=== PATIENT | male | born 1965 | race Caucasian/White ===

== ENCOUNTER 2016-08-29 09:39 | Emergency (ER) | payer OTHER ==
[~2016-08-29] VITALS: Ht 177.8 cm; Wt 87.5 kg
[2016-08-29 09:49] VITALS: Ht 177.8 cm; Wt 87.5 kg
[2016-08-29] MEDS ORDERED: HYDROmorphONE 2 MG/ML SYG IV ONE (10:00)
[2016-08-29] MEDS ORDERED: ONDANSETRON 4 MG INJ IV ONE (10:00)
--- NOTE | 2016-08-29 11:21 | RADRPT ---
PROCEDURE: CT Brain without contrast. CLINICAL INDICATION: Trauma with loss of consciousness. TECHNIQUE: Axial imaging was obtained through the head without intravenous contrast administration using a multi-slice CT scanner. Standard CT scan of the head without contrast protocols were perfo rmed. The CTDIvol is 44.81 mGy and the DLP is 630.2 mGycm. COMPARISON: None FINDINGS: There is an misregistration artifact involving the posterior calvarium. There are no definite sol rial fractures. The ventricular system and peripheral CSF spaces are unremarkable. Negative for in tracranial masses hemorrhages or midline shift. There is a sessile shaped bulge along the right lat eral scalp without an underlying mass or fluid collection. No foreign bodies. The paranasal sinuse s and mastoids visualized are unremarkable. IMPRESSION: No evidence of intracranial masses hemorrhages or midline shift. RPTAT:AAJJ Physician Nicolas Date Time Electronically viewed and signed by Physician Nicolas on 08/29/2016 11:21 /
--- NOTE | 2016-08-29 11:46 | RADRPT ---
PROCEDURE: XR Chest. CLINICAL INDICATION: Trauma TECHNIQUE: Single frontal chest x-ray. COMPARISON: None. FINDINGS: There is diffuse subcutaneous emphysema noted throughout the lower neck and chest, most pronounced o emma the left chest with air dissecting into the pectoralis major fibers. The underlying lungs are p artially obscured. There is opacification left lung base related to contusion or atelectasis. Ther e is lucency noted in the right upper lung, a pneumothorax is not excluded. Evaluation there is als o limited. No gross displaced fractures are identified. A posterior left-sided Kaufman felicia is n oted at the thoracolumbar spine with evidence of scoliosis. IMPRESSION: 1. Extensive subcutaneous emphysema noted throughout the visualized lungs, correlation with chest C T is warranted. 2. Partial obscuration of the underlying lungs, with partial opacification of the left lung base, p artially characterized. RPTAT: TT .Chau Johnston MD, MD Date Time Electronically viewed and signed by .Chau Johnston MD, on 08/29/2016 11:45 .d/
--- NOTE | 2016-08-29 11:49 | RADRPT ---
PROCEDURE: Thoracic Spine. CLINICAL INDICATION: Back Pain. Trauma. TECHNIQUE: Three views of the thoracic spine are available for review COMPARISON: None available FINDINGS: Significant reverse S-shaped curvature of the thoracic spine. Posterior spinal fixation felicia is seen in place. There is reversal of the normal thoracic kyphosis on the lateral view. There is moderate loss of height of several mid thoracic spine vertebral bodies, age indeterminate. Osteoporotic com pression fractures are considered most likely. Above this level, there is significant discogenic di sease and disk space narrowing at several upper thoracic spinal disk space levels, at the approximat e T3-4 and T4-5 levels. No other incidental abnormality is seen. IMPRESSION: 1. There is moderate loss of height of several mid thoracic spine vertebral bodies, age indetermina te and possibly chronic and osteoporotic in nature. Given the patient's history of trauma, acute co mpression fractures are not entirely excluded, although considered less likely. 2. Multilevel discogenic disease and disk space narrowing with degenerative spondylosis involving t he upper thoracic spine at the approximate T3-T5 levels. 3. Moderate and significant reverse S-shaped scoliotic curvature of the thoracic spine. There is a posterior spinal fixation felicia in place. RPTAT: HMJB .Juan Merchant MD, MD Date Time Electronically viewed and signed by .Juan Merchant MD, on 08/29/2016 11:48 .B/
[2016-08-29] MEDS ORDERED: ONDANSETRON 4 MG INJ IV STA ×2 (12:18→15:20)
[2016-08-29] MEDS ORDERED: HYDROmorphONE 1 MG/ML SYG IV STA ×3 (12:18→16:18)
[2016-08-29 12:37] LABS: POTASSIUM 3.9 mmol/L (3.5-5.1)
[2016-08-29 12:40] LABS: CREATININE 0.67 mg/dl (0.61-1.24)
[2016-08-29 12:41] LABS: CALCIUM 9.3 mg/dl (8.4-10.2)
[2016-08-29] MEDS ORDERED: IOHEXOL 100 ML ONE (13:07)
[2016-08-29] MEDS ORDERED: SOD CHLORIDE 0.9% 100 ML ONE (13:07)
[2016-08-29] MEDS ORDERED: IOHEXOL 350MG/ML 50 ML BTL ONE (13:08)
--- NOTE | 2016-08-29 13:35 | ERA ---
ER Documentation Chief Complaint Date/Time DATE: 08/29/16 TIME: 13:32 Chief Complaint 5 ft fall; ko; back pain; sob HPI This a 50-year-old male who fell 5 feet from a small ladder landing on an electric saw that was not returned on to his mid thoracic spine. Bystanders said he did hit his head and was knocked out for 30 seconds. The patient is denying neck pain headache but complains of pain to the intrascapular region. Says he has a felicia in his back from the scoliosis surgery. Is concerned that has gotten displaced because of the pain. He is no chest pain no abdominal pain no low back pain no pelvic pain no extremity pain no dizziness shortness of breath. ROS All systems reviewed and are negative except as per history of present illness. Medications Home Meds No Active Prescriptions or Reported Meds Allergies Allergies: Coded Allergies: No Known Allergy (Unverified , 08/29/16) PMhx/Soc Medical and Surgical Hx: pt denies Medical Hx, pt denies Surgical Hx Hx Alcohol Use: Yes Hx Substance Use: No Hx Tobacco Use: No Smoking Status: Never smoker FmHx Family History: No coronary disease Physical Exam Vitals Vital Signs Date Time Temp Pulse Resp B/P Pulse Ox O2 Delivery O2 Flow Rate FiO2 08/29/16 09:49 98.4 82 24 146/110 100 Physical Exam Const: Well-developed, well-nourished Head: Atraumatic, normocephalic Eyes: Normal Conjunctiva, PERRLA, EOMI, normal sclera, no nystagmus ENT: Normal External Ears, Nose and Mouth, moist mucus membranes. Neck: Full range of motion. No meningismus, no lymphadenopathy. Resp: Clear to auscultation bilaterally, no wheezing, rhonchi, rales Cardio: Regular rate and rhythm, no murmurs, S1 S2 present Abd: Soft, non tender x 4, non distended. Normal bowel sounds, no guarding or rebound, no pulsitile abdominal masses or bruits Skin: No petechiae or rashes, no ecchymosis , no maculopapular rash Back: Tenderness along the mid and upper thoracic spine the midline and bilateral paraspinal regions, pain is worse with movements Ext: No cyanosis, or edema, FROM x 4, normal inspection, neurovascularly intact x 4 Neur: Awake and alert, STR 5/5 x 4, sensation intact x 4, no focal findings, cerebellum intact Psych: Normal Mood and Affect Result Diagram: 08/29/16 1225 Results 24 hrs Laboratory Tests Test 08/29/16 12:25 Anion Gap 16 Blood Urea Nitrogen 19mg/dl Calcium Level 9.3mg/dl Carbon Dioxide Level 30mmol/L Chloride Level 99mmol/L Creatinine 0.67mg/dl Glucose Level 109mg/dl Potassium Level 3.9mmol/L Sodium Level 141mmol/L Current Medications Medications (Trade) Dose Ordered Sig/Checo Route PRN Reason Start Time Stop Time Status Last Admin Dose Admin Hydromorphone HCl (Dilaudid) 1 mg ONCE ONCE IV 08/29/16 10:00 08/29/16 10:02 DC 08/29/16 10:14 Ondansetron HCl (Zofran Inj) 4 mg ONCE ONCE IV 08/29/16 10:00 08/29/16 10:02 DC 08/29/16 10:14 Hydromorphone HCl (Dilaudid) 1 mg ONCE STAT IV 08/29/16 12:18 08/29/16 12:19 DC 08/29/16 12:32 Ondansetron HCl (Zofran Inj) 4 mg ONCE STAT IV 08/29/16 12:18 08/29/16 12:19 DC 08/29/16 12:32 IV Flush 10 ml 10 ml STK-MED ONCE .ROUTE 08/29/16 13:07 08/29/16 13:08 DC 08/29/16 13:32 Sodium Chloride 100 ml @ ud STK-MED ONCE .ROUTE 08/29/16 13:07 08/29/16 13:08 DC 08/29/16 13:33 Iohexol (Omnipaque) 100 ml @ ud STK-MED ONCE .ROUTE 08/29/16 13:07 08/29/16 13:08 DC 08/29/16 13:33 Iohexol 50 ml 50 ml STK-MED ONCE .ROUTE 08/29/16 13:08 08/29/16 13:09 DC 08/29/16 13:33 Propofol (Diprivan) 20 ml @ ud STK-MED ONCE .ROUTE 08/29/16 14:35 08/29/16 14:36 DC Lidocaine 20 ml 20 ml STK-MED ONCE .ROUTE 08/29/16 15:03 08/29/16 15:04 DC Propofol (Diprivan) 20 ml @ ud STK-MED ONCE .ROUTE 08/29/16 15:09 08/29/16 15:10 DC Procedures/MDM PROCEDURE: CT Brain without contrast. CLINICAL INDICATION: Trauma with loss of consciousness. TECHNIQUE: Axial imaging was obtained through the head without intravenous contrast administration using a multi-slice CT scanner. Standard CT scan of the head without contrast protocols were performed. The CTDIvol is 44.81 mGy and the DLP is 630.2 mGycm. COMPARISON: None FINDINGS: There is an misregistration artifact involving the posterior calvarium. There are no definite calvarial fractures. The ventricular system and peripheral CSF spaces are unremarkable. Negative for intracranial masses hemorrhages or midline shift. There is a sessile shaped bulge along the right lateral scalp without an underlying mass or fluid collection. No foreign bodies. The paranasal sinuses and mastoids visualized are unremarkable. IMPRESSION: No evidence of intracranial masses hemorrhages or midline shift. RPTAT:AAJJ Physician Nicolas Date Time Electronically viewed and signed by Physician Nicolas on 08/29/2016 11:21 BM/ CC: TYREL SHERMAN DO PROCEDURE: XR Chest. CLINICAL INDICATION: Trauma TECHNIQUE: Single frontal chest x-ray. COMPARISON: None. FINDINGS: There is diffuse subcutaneous emphysema noted throughout the lower neck and chest, most pronounced over the left chest with air dissecting into the pectoralis major fibers. The underlying lungs are partially obscured. There is opacification left lung base related to contusion or atelectasis. There is lucency noted in the right upper lung, a pneumothorax is not excluded. Evaluation there is also limited. No gross displaced fractures are identified. A posterior left-sided Kaufman felicia is noted at the thoracolumbar spine with evidence of scoliosis. IMPRESSION: 1. Extensive subcutaneous emphysema noted throughout the visualized lungs, correlation with chest CT is warranted. 2. Partial obscuration of the underlying lungs, with partial opacification of the left lung base, partially characterized. RPTAT: TT .Chau Johnston MD, MD Date Time Electronically viewed and signed by .Chau Johnston MD, MD on 08/29/2016 11:45 .d/ CC: TYREL SHERMAN DO PROCEDURE: Thoracic Spine. CLINICAL INDICATION: Back Pain. Trauma. TECHNIQUE: Three views of the thoracic spine are available for review COMPARISON: None available FINDINGS: Significant reverse S-shaped curvature of the thoracic spine. Posterior spinal fixation felicia is seen in place. There is reversal of the normal thoracic kyphosis on the lateral view. There is moderate loss of height of several mid thoracic spine vertebral bodies, age indeterminate. Osteoporotic compression fractures are considered most likely. Above this level, there is significant discogenic disease and disk space narrowing at several upper thoracic spinal disk space levels, at the approximate T3-4 and T4-5 levels. No other incidental abnormality is seen. IMPRESSION: 1. There is moderate loss of height of several mid thoracic spine vertebral bodies, age indeterminate and possibly chronic and osteoporotic in nature. Given the patient's history of trauma, acute compression fractures are not entirely excluded, although considered less likely. 2. Multilevel discogenic disease and disk space narrowing with degenerative spondylosis involving the upper thoracic spine at the approximate T3-T5 levels. 3. Moderate and significant reverse S-shaped scoliotic curvature of the thoracic spine. There is a posterior spinal fixation felicia in place. RPTAT: HMJB .Juan Merchant MD, MD Date Time Electronically viewed and signed by .Juan Merchant MD, MD on 08/29/2016 11:48 .B/ CC: TYREL SHERMAN DO The patient is subsequently developed subcutaneous emphysema along the upper chest and lower neck left more than right. CT scan of chest with IV contrast has been ordered PROCEDURE: CTA Chest CLINICAL INDICATION: Trauma, pain TECHNIQUE: CTA of the chest was performed following the uncomplicated IV administration of 125 cc Omnipaque 350. Coronal and sagittal images were reconstructed from the axial data set. 3-D volumetric rendered post processing was performed as well. One or more of the following dose reduction techniques were used: automated exposure control, adjustment of the mA and/or kV according to patient size, use of iterative reconstruction technique. CTDI = 16.95 mGy. DLP = 717.15 mGy-cm. COMPARISON: X-ray, 08/29/2016 FINDINGS: There are moderate to large bilateral pneumothoraces (approximately 20-30% bilaterally). Bibasilar atelectasis is noted. Small to mild amount of hyperdense pleural fluid is seen bilaterally, compatible with hemothorax. No active contrast extravasation is identified. The central tracheobronchial tree is clear. No suspicious pulmonary nodule or mass lesion is identified. The heart size is normal, without pericardial effusion. There is no thoracic aortic aneurysm or dissection. No mediastinal, hilar, axillary or supraclavicular lymphadenopathy is identified. Extensive pneumomediastinum is noted. Visualized portions of the upper abdomen demonstrate no acute abnormality. There are mild to moderate displaced acute fractures of the right 1st - 5th ribs anteriorly and anterolaterally. In addition, there are mildly displaced acute fractures of the right 3rd, 4th, 5th and 12th ribs posteriorly. There are moderately displaced acute fractures of the left 1st and 2nd ribs anteriorly. Extensive bilateral subcutaneous emphysema is seen extending into the lower neck and mediastinum. Thoracic spinal felicia is in place. No evidence of acute spiral fracture or malalignment is seen. IMPRESSION: 1. There are moderate to large bilateral pneumothoraces (approximately 20-30% bilaterally). 2. Extensive bilateral chest wall subcutaneous emphysema is seen, extending into the lower neck and into the mediastinum. 3. Small to mild amount of hemothorax is present bilaterally, greater on the right. 4. There are multiple bilateral rib fractures, as outlined above. A call report was made to Dr. WHIT Parish on 08/29/2016 1:39:46 PM. RPTAT: EE .Ozzie Gilbert MD, Date Time Electronically viewed and signed by .Ozzie Gilbert MD, MD on 08/29/2016 13: 47 .R/ CC: TYREL SHERMAN DO Patient was explained the procedure for both chest tubes and he consented to them and signed consent form. Right chest Tube Placement by me: Patient consented, sterilely draped, full prep, gown, glove, mask, time out performed. Anesthesia: Conscious sedation Location: Mid-Anterior Axillary Line, approximate 5th intercostal Device: [32] indonesian chest tube Technique: Vertical incision, blunt dissection above the superior rib border , tactile confirmation Results: Chest tube fogging Secured with suture and taping. No complications. Attached to waterseal. Left chest Tube Placement by me: Patient consented, sterilely draped, full prep, gown, glove, mask, time out performed. Anesthesia: Conscious sedation Location: Mid-Anterior Axillary Line, approximate 5th intercostal Device: [28] indonesian chest tube Technique: Vertical incision, blunt dissection above the superior rib border , tactile confirmation Results: Chest tube fogging Secured with suture and taping. No complications. Attached to waterseal. Procedural Sedation: Pre-assessment performed. See preceding complete history and physical for details. Time out performed. See sedation documentation for details. Medication(s): [Propofol] Complications: No hypoxic or apneic events Recovered without incident. Greater than 15 minutes of face to face time included in sedation and recovery. Patient was given Rocephin 2 g IV Normal saline 1 L Discussed the case with [facility]. The patient was transferred to [facility] trauma [facility]. Spoke with [facility] and they did accept the patient in transfer Critical Care: Time: 50 minutes Treatments/Evaluations: Close monitoring and treatment of unstable vital signs, cardiorespiratory, and neurologic status, while maintaining tight balance of fluid, respiratory, and cardiac interventions outside of dictated billable procedures. Departure Diagnosis: Primary Impression: Bilateral pneumothoraces Additional Impressions: Ribs, multiple fractures Qualified Code: S22.43XA - Closed fracture of multiple ribs of both sides, initial encounter Fall with significant injury Qualified Code: W19.XXXA - Fall with significant injury, initial encounter Condition: Stable TYREL SHERMAN DO Aug 29, 2016 13:35
--- NOTE | 2016-08-29 13:48 | RADRPT ---
PROCEDURE: CTA Chest CLINICAL INDICATION: Trauma, pain TECHNIQUE: CTA of the chest was performed following the uncomplicated IV administration of 125 cc Omnipaque 350. Coronal and sagittal images were reconstructed from the axial data set. 3-D volumet perfecto rendered post processing was performed as well. One or more of the following dose reduction christina hniques were used: automated exposure control, adjustment of the mA and/or kV according to patient s ize, use of iterative reconstruction technique. CTDI = 16.95 mGy. DLP = 717.15 mGy-cm. COMPARISON: X-ray, 08/29/2016 FINDINGS: There are moderate to large bilateral pneumothoraces (approximately 20-30% bilaterally). Bibasilar atelectasis is noted. Small to mild amount of hyperdense pleural fluid is seen bilaterally, compati ble with hemothorax. No active contrast extravasation is identified. The central tracheobronchial tree is clear. No suspicious pulmonary nodule or mass lesion is identified. The heart size is normal, without pericardial effusion. There is no thoracic aortic aneurysm or dis section. No mediastinal, hilar, axillary or supraclavicular lymphadenopathy is identified. Extensi ve pneumomediastinum is noted. Visualized portions of the upper abdomen demonstrate no acute abnormality. There are mild to moderate displaced acute fractures of the right 1st - 5th ribs anteriorly and ante rolaterally. In addition, there are mildly displaced acute fractures of the right 3rd, 4th, 5th and 12th ribs posteriorly. There are moderately displaced acute fractures of the left 1st and 2nd ribs anteriorly. Extensive bilateral subcutaneous emphysema is seen extending into the lower neck and m ediastinum. Thoracic spinal felicia is in place. No evidence of acute spiral fracture or malalignment is seen. IMPRESSION: 1. There are moderate to large bilateral pneumothoraces (approximately 20-30% bilaterally). 2. Extensive bilateral chest wall subcutaneous emphysema is seen, extending into the lower neck and into the mediastinum. 3. Small to mild amount of hemothorax is present bilaterally, greater on the right. 4. There are multiple bilateral rib fractures, as outlined above. A call report was made to Dr. WHIT Parish on 08/29/2016 1:39:46 PM. RPTAT: EE .Ozzie Gilbert MD, MD Date Time Electronically viewed and signed by .Ozzie Gilbert MD, MD on 08/29/2016 13:47 .R/
[2016-08-29] MEDS ORDERED: PROPOFOL 20 ML ONE ×2 (14:35→15:09)
[2016-08-29] MEDS ORDERED: LIDOCAINE 1% (MDV) 20 ML INJ ONE (15:03)
[2016-08-29] MEDS ORDERED: SOD CHLORIDE 0.9% 1,000 ML IV STA (15:30)
[2016-08-29] MEDS ORDERED: CEFTRIAXONE 2 GM/50 ML (PMX) 50 ML IVPB ONE (15:30)
[2016-08-29 15:52] LABS: BASOPHILS % 0.1 % (0.0-2.0); HEMATOCRIT 42.7 % (42.0-52.0); HEMOGLOBIN 14.5 g/dl (14.0-18.0); LYMPHOCYTES # 0.6 10^3/ul (0.8-2.9); LYMPHOCYTES % 3.8 % (15.0-51.0); MEAN CORPUSCULAR HEMOGLOBIN 29.6 pg (29.0-33.0); MEAN CORPUSCULAR HGB CONC 34.1 g/dl (32.0-37.0); MEAN PLATELET VOLUME 7.6 fl (7.4-10.4); MONOCYTES % 6.4 % (0.0-11.0); NEUTROPHIL # 13.8 10^3/ul (1.6-7.5); NEUTROPHILS % 89.7 % (39.0-77.0); PLATELET COUNT 186 10^3/UL (140-440); RED BLOOD COUNT 4.91 10^6/ul (4.70-6.10); RED CELL DISTRIBUTION WIDTH 13.5 % (11.5-14.5); UNCORRECTED WBC 15.4 10^3/ul (4.8-10.8); WHITE BLOOD COUNT 15.4 10^3/ul (4.8-10.8)
[2016-08-29 15:56] LABS: CONDITION 1
--- NOTE | 2016-08-29 15:59 | RADRPT ---
PROCEDURE: XR Chest. CLINICAL INDICATION: Trauma. Chest pain. TECHNIQUE: Single frontal view. COMPARISON: 08/29/2016. 1129 hours. FINDINGS: There are new bilateral chest tubes in satisfactory position. There is no pneumothorax. There is ex tensive bilateral subcutaneous emphysema. Mild atelectasis is present at the lung bases, left worse than right. The lungs are otherwise clear. The heart is mildly enlarged. There is no pleural effusion. There is a single felicia in the spine. IMPRESSION: 1. New bilateral chest tubes in satisfactory position. 2. No pneumothorax. 3. Extensive bilateral subcutaneous emphysema. 4. Mild cardiomegaly. 5. Prior spine surgery. RPTAT: QQ .Miguel Angel Botello MD, MD Date Time Electronically viewed and signed by .Miguel Angel Botello MD, on 08/29/2016 15:59 .R/
[2016-08-29 16:12] LABS: INR 1.03; PROTIME 13.5 Sec (12.2-14.2); PT RATIO 1.1
[2016-08-29 16:55] VITALS: BP 130/90; PULSE 101; RESP 22; TEMP 98.3
[2016-08-29 18:38] LABS: PARTIAL THROMBOPLASTIN TIME 24.8 Sec (25.0-35.0)
== END 2016-08-29 17:10 | disposition short-term general hospital (02) ==
LOC: E/R 09:39
DX: S27.0XXA Traumatic pneumothorax, initial encounter (principal); S22.43XA Multiple fractures of ribs, bilateral, initial encounter for closed fracture; R40.4 Transient alteration of awareness; W11.XXXA Fall on and from ladder, initial encounter; Y92.9 Unspecified place or not applicable
CPT/HCPCS: 32551; 70450; 71010; 71275; 72072; 80048; 85025; 85610; 85730; J1170; J2405; J7030; Q9967; 96374; 96375; 96376